=== PATIENT | female | born 1990 | race Two or more races ===

== ENCOUNTER 2017-01-06 19:51 | Emergency (ER) | payer OTHER ==
--- NOTE | 2017-01-06 20:01 | UC ---
Skin Complaint HPI - HPI Summary HPI Summary: 26 YEAR OLD FEMALE PRESENTS WITH COMPLAINS RIGHT EAR ABSCESS MOST LIKELY SECONDARY TO A BEE/INSECT STING. - History of Current Complaint Time Seen by Provider: 01/06/17 20:01 Stated Complaint: SOFT TISSUE COMPLAINT EAR Hx Obtained From: Patient Hx Last Menstrual Period: 12/19/15 Onset/Duration: Sudden Onset Skin Exposure Onset/Duration: Minutes Ago Onset Severity: Moderate Current Severity: Moderate Pain Scale Used: 0-10 Numeric - 5 Location: Ear (Right) - Allergy/Home Medications Allergies/Adverse Reactions: Allergies Allergy/AdvReac Type Severity Reaction Status Date / Time No Known Allergies Allergy Verified 01/06/17 20:11 Review of Systems Constitutional: Negative Skin: Other - RIGT EAR ABSCESS Eyes: Negative ENT: Negative Respiratory: Negative Cardiovascular: Negative Gastrointestinal: Negative Genitourinary: Negative Motor: Negative Neurovascular: Negative Musculoskeletal: Negative Neurological: Negative Psychological: Negative All Other Systems Reviewed And Are Negative: Yes PMH/Surg Hx/FS Hx/Imm Hx Previously Healthy: Yes - Surgical History Surgical History: Yes Surgery Procedure, Year, and Place: x2 (last one 02/2015). Lap repair of ventral hernia w/mesh and abdomnal rectus muscle repair. - Family History Known Family History: Positive: Unknown Negative: Renal Disease - Social History Alcohol Use: None Substance Use Type: None Smoking Status (MU): Never Smoked Tobacco Have You Smoked in the Last Year: No - Immunization History Most Recent Influenza Vaccination: 01/23/15 Most Recent Tetanus Shot: 01/21/15 Most Recent Pneumonia Vaccination: none Physical Exam Triage Information Reviewed: Yes Vital Signs Reviewed: Yes Eye Exam: Normal ENT Exam: Normal Dental Exam: Normal Neck exam: Normal Neck: Positive: 1 Respiratory Exam: Normal Cardiovascular Exam: Normal Abdominal Exam: Normal Musculoskeletal Exam: Normal Neurological Exam: Normal Psychological Exam: Normal Skin: Positive: Other - RIGHT EAR ABSCESS Course/Dx - Diagnoses Provider Diagnoses: RIGHT EAR ABSCESS Discharge - Discharge Plan Condition: Stable Disposition: HOME Prescriptions: Cephalexin CAP* [Keflex CAP*] 500 mg PO TID #30 cap LoraTADine TAB(NF) [Claritin 10 MG TAB(NF)] 10 mg PO DAILY #30 tab Methylprednisolone [Medrol Dosepak 4 MG*] 4 mg PO .SEE NELI INSTRUCTION #21 tab Triamcinolone 0.1% CREAM (NF) [Kenalog 0.1% Cream (NF)] 1 applic TOPICAL BID PRN #30 gm PRN Reason: Itching Patient Education Materials: Abscess (ED) Referrals: Ken Kaur MD [Primary Care Provider] -
[2017-01-06 20:14] VITALS: BP 116/74
== END 2017-01-06 20:14 | disposition home or self-care (01) ==
LOC: UCEAST 19:51
DX: H66.41 Suppurative otitis media, unspecified, right ear (principal)
CPT/HCPCS: 99212; G0463

== ENCOUNTER 2017-04-21 17:44 | Emergency (ER) | payer OTHER ==
[2017-04-21 17:52] VITALS: BP 107/69
--- NOTE | 2017-04-21 17:56 | UC ---
Upper Extremity HPI - HPI Summary HPI Summary: 26 year old female presents w8ith complains of right hand/wrist pain. - History of Current Complaint Chief Complaint: UCUpperExtremity Stated Complaint: HAND PAIN Time Seen by Provider: 04/21/17 17:56 Hx Obtained From: Patient Hx Last Menstrual Period: 03/23 Severity Initially: Moderate Severity Currently: Moderate Pain Scale Used: 0-10 Numeric - 7 Character: Sharp, Throbbing Aggravating Factor(s): Movement - Allergies/Home Medications Allergies/Adverse Reactions: Allergies Allergy/AdvReac Type Severity Reaction Status Date / Time No Known Allergies Allergy Verified 04/21/17 17:52 PMH/Surg Hx/FS Hx/Imm Hx Previously Healthy: Yes - Surgical History Surgical History: Yes Surgery Procedure, Year, and Place: x2 (last one 02/2015). Lap repair of ventral hernia w/mesh and abdomnal rectus muscle repair. - Family History Known Family History: Positive: Unknown Negative: Renal Disease - Social History Alcohol Use: None Substance Use Type: None Smoking Status (MU): Never Smoked Tobacco Have You Smoked in the Last Year: No - Immunization History Most Recent Influenza Vaccination: 01/23/15 Most Recent Tetanus Shot: 01/21/15 Most Recent Pneumonia Vaccination: none Review of Systems Constitutional: Negative Skin: Negative Eyes: Negative ENT: Negative Respiratory: Negative Cardiovascular: Negative Gastrointestinal: Negative Genitourinary: Negative Motor: Negative Neurovascular: Negative Musculoskeletal: Other: - right wrist pain/swelling Neurological: Negative Psychological: Negative All Other Systems Reviewed And Are Negative: Yes Physical Exam Triage Information Reviewed: Yes Appearance: Well-Appearing Vital Signs: Initial Vital Signs Temp 36.9 C 04/21/17 17:47 Pulse 83 04/21/17 17:47 Resp 18 04/21/17 17:47 BP 107/69 04/21/17 17:47 Pulse Ox 100 04/21/17 17:47 Vital Signs Reviewed: Yes Eye Exam: Normal ENT Exam: Normal Dental Exam: Normal Neck exam: Normal Neck: Positive: 1 Respiratory Exam: Normal Cardiovascular Exam: Normal Abdominal Exam: Normal Musculoskeletal: Positive: Other: - right wirst pain/swelling Neurological Exam: Normal Psychological Exam: Normal Skin Exam: Normal Upper Extremity Course/Dx - Differential Dx/Diagnosis Provider Diagnoses: right wirst pain/swelling. druj injury Discharge - Discharge Plan Condition: Stable Disposition: HOME Prescriptions: Meloxicam(NF) [Mobic(NF)] 7.5 mg PO BID #30 tab Patient Education Materials: Tendinitis (ED), Wrist Sprain (ED) Print Language: BAHRAINI Forms: *Work Release Referrals: Rudolph Dacosta MD [Medical Doctor] - Ken Kaur MD [Primary Care Provider] -
--- NOTE | 2017-04-21 18:28 | RAD ---
INDICATION: Right wrist pain. TECHNIQUE: 3 views of the right wrist were obtained. FINDINGS: There is widening of the distal radioulnar joint possibly indicating subluxation. The bones are otherwise in normal alignment. No fracture is seen. No arthritic changes noted. IMPRESSION: POSSIBLE SUBLUXATION OF THE DISTAL RADIOULNAR JOINT.
--- NOTE | 2017-04-21 18:29 | RAD ---
INDICATION: Right hand pain. TECHNIQUE: 4 views of the right hand were obtained. FINDINGS: There is widening of the distal radioulnar joint possibly indicating subluxation. The bones are otherwise in normal alignment. No fracture is seen. No arthritic change is noted. IMPRESSION: POSSIBLE SUBLUXATION OF THE DISTAL RADIOULNAR JOINT.
== END 2017-04-21 18:45 | disposition home or self-care (01) ==
LOC: UCEAST 17:44
DX: S69.91XA Unspecified injury of right wrist, hand and finger(s), initial encounter (principal); X58.XXXA Exposure to other specified factors, initial encounter; Y92.9 Unspecified place or not applicable
CPT/HCPCS: 99213; G0463